=== PATIENT | male | born 1970 | race Caucasian/White ===

== ENCOUNTER 2019-10-27 11:17 | Emergency (ER) | payer BC ==
[2019-10-27] MEDS ORDERED: Sodium Chloride 0.9% 10 ML Syringe FLUSH PRN (11:24)
[2019-10-27 11:26] VITALS: BP 130/91; PULSE 46
--- NOTE | 2019-10-27 13:47 | CR ---
Chest: Portable view of the chest was obtained. Comparison: Prior chest x-ray of 10/16/15. Heart size and mediastinum are normal. Lungs are clear with no acute parenchymal change. Bony structures are grossly intact. Impression: 1. Nothing acute is seen on portable chest x-ray. Diagnostic code #1 This report was dictated in MDT
--- NOTE | 2019-10-27 14:10 | EDM.PDOC ---
ED HPI GENERAL MEDICAL PROBLEM - General Chief Complaint: Chest Pain Stated Complaint: [facility] Time Seen by Provider: 10/27/19 11:20 Source of Information: Reports: Patient, RN Notes Reviewed - History of Present Illness INITIAL COMMENTS - FREE TEXT/NARRATIVE: 49 yr old male awakened with onset of pressure discomfort upper abd and lower chest this past morning about 5 hrs ago. Went to the [place] [facility] and than transferred here for further evaluation. Still having mild pressure discomfort on arrival to ED. No known hx of Htn, diabetes or CAD. Does not smoke. Has been having a lot of stomach discomfort, what he has felt was heart burn for the past several weeks. No recent cough or difficulty breathing. Left Chest Pain Score (Numeric/FACES): 2 - Related Data Allergies Allergy/AdvReac Type Severity Reaction Status Date / Time No Known Allergies Allergy Verified 10/27/19 11:26 Home Meds: Home Meds Omeprazole 40 mg PO DAILY #30 capsule. 10/27/19 [Rx] Pregabalin [Lyrica] 150 mg PO BID 10/27/19 [History] Rosuvastatin [Crestor] 10 mg PO DAILY 10/27/19 [History] Past Medical History Cardiovascular History: Reports: High Cholesterol Musculoskeletal History: Reports: Fibromyalgia - Past Surgical History HEENT Surgical History: Reports: Other (See Below) Other HEENT Surgeries/Procedures: eat reconstruction sx GI Surgical History: Reports: Appendectomy Musculoskeletal Surgical History: Reports: Other (See Below) Other Musculoskeletal Surgeries/Procedures:: R open tibula, fibula sx. Social & Family History - Family History Cardiac: Reports: MD - Tobacco Use Smoking Status *Q: Former Smoker Used Tobacco, but Quit: Yes Month/Year Tobacco Last Used: 04/2019 - Caffeine Use Caffeine Use: Reports: None - Recreational Drug Use Recreational Drug Use: No ED ROS GENERAL - Review of Systems Review Of Systems: See Below Constitutional: Denies: Fever, Chills, Diaphoresis HEENT: Reports: No Symptoms Respiratory: Denies: Shortness of Breath, Cough Cardiovascular: Reports: Chest Pain GI/Abdominal: Reports: Abdominal Pain, Nausea (mild occasional). Denies: Hematochezia, Melena, Vomiting Musculoskeletal: Denies: Shoulder Pain, Arm Pain, Back Pain Skin: Reports: No Symptoms Neurological: Reports: No Symptoms ED EXAM, GENERAL - Physical Exam Exam: See Below General Appearance: Alert, No Apparent Distress (at time of initial exam) Eye Exam: Bilateral Eye: PERRL Respiratory/Chest: No Respiratory Distress, Lungs Clear, Normal Breath Sounds Cardiovascular: Bradycardia GI/Abdominal: Soft, Non-Tender. No: Guarding Back Exam: No: CVA Tenderness (L), CVA Tenderness (R) Extremities: Normal Inspection, Normal Range of Motion Neurological: Alert, Oriented, No Motor/Sensory Deficits Skin Exam: Warm, Dry, Normal Color Course - Vital Signs Last Recorded V/S: Last Vital Signs Temp 96.9 F 10/27/19 11:22 Pulse 46 L 10/27/19 11:22 Resp 18 10/27/19 11:22 BP 130/91 H 10/27/19 11:22 Pulse Ox 96 10/27/19 11:22 - Orders/Labs/Meds Orders: Active Orders 24 hr Category Date Time Status EKG 12 Lead [EKG Documentation Completion] [RC] STAT Care 10/27/19 11:25 Active Peripheral IV Care [RC] . DIRECTED Care 10/27/19 11:25 Active Peripheral IV Insertion Adult [OM.PC] Stat Oth 10/27/19 11:25 Ordered Labs: Laboratory Tests 10/27/19 10/27/19 10/27/19 Range/Units 11:25 11:25 13:55 WBC 7.27 (4.23-9.07) K/mm3 RBC 4.46 L (4.63-6.08) M/mm3 Hgb 13.5 L D (13.7-17.5) gm/dl Hct 39.9 L (40.1-51.0) % MCV 89.5 (79.0-92.2) fl MCH 30.3 (25.7-32.2) pg MCHC 33.8 (32.2-35.5) g/dl RDW Std Deviation 43.1 (35.1-43.9) fL Plt Count 186 (163-337) K/mm3 MPV 11.0 (9.4-12.3) fl Neut % (Auto) 52.8 (34.0-67.9) % Lymph % (Auto) 31.9 (21.8-53.1) % [place] % (Auto) 12.4 H (5.3-12.2) % Eos % (Auto) 2.2 (0.8-7.0) Baso % (Auto) 0.4 (0.1-1.2) % Neut # (Auto) 3.84 (1.78-5.38) K/mm3 Lymph # (Auto) 2.32 (1.32-3.57) K/mm3 [place] # (Auto) 0.90 H (0.30-0.82) K/mm3 Eos # (Auto) 0.16 (0.04-0.54) K/mm3 Baso # (Auto) 0.03 (0.01-0.08) K/mm3 Sodium 145 (136-145) mEq/L Potassium 4.4 (3.5-5.1) mEq/L Chloride 110 H (98-107) mEq/L Carbon Dioxide 25 (21-32) mEq/L Anion Gap 14.4 (5-15) BUN 17 (7-18) mg/dL Creatinine 1.1 (0.7-1.3) mg/dL Est Cr Clr Drug Dosing 88.18 mL/min Estimated GFR (MDRD) > 60 (>60) mL/min BUN/Creatinine Ratio 15.5 (14-18) Glucose 90 (74-106) mg/dL Calcium 9.2 (8.5-10.1) mg/dL Total Bilirubin 0.3 (0.2-1.0) mg/dL AST 18 (15-37) U/L ALT 27 (16-63) U/L Alkaline Phosphatase 64 (46-116) U/L Troponin I < 0.017 < 0.017 (0.00-0.056) ng/mL Total Protein 6.9 (6.4-8.2) g/dl Albumin 3.6 (3.4-5.0) g/dl Globulin 3.3 gm/dL Albumin/Globulin Ratio 1.1 (1-2) Meds: Medications Discontinued Medications Generic Name Dose Route Start Last Admin Trade Name Freq PRN Reason Stop Dose Admin Sodium Chloride 10 ml 10/27/19 11:24 10/27/19 11:27 Saline Flush FLUSH 10 ml ASDIRECTED PRN Administration Keep Vein Open - Re-Assessments/Exams Free Text/Narrative Re-Assessment/Exam: 10/27/19 17:35 CXR nl, Bradycardia but EKG otherwise nl. initial trop and repeat trop nl. As noted a lot of GERD sx the past several wks. Discharge instr. as documented. 10/27/19 17:36 Departure - Departure Time of Disposition: 15:02 Disposition: Home, Self-Care 01 Condition: Fair Clinical Impression: GERD (gastroesophageal reflux disease), Atypical chest pain Prescriptions: Omeprazole 40 mg PO DAILY #30 capsule. Referrals: Edith Austin, ELECTRONICS ENGINEERING MANAGER [Primary Care Provider] - Forms: ED Department Discharge Additional Instructions: prilosec 40 mg daily, pepcid or famotidine (available OTC) 20 mg twice daily. You may continue to use tums in addition until sx resolving. See Edith at the [facility] in 1 to 2 wks for recheck. Return to ED as needed if sx worsening in any way. Sepsis Event Note (ED) - Evaluation Sepsis Screening Result: No Definite Risk - Focused Exam Vital Signs: Vital Signs Temp Pulse Resp BP Pulse Ox 10/27/19 11:22 96.9 F 46 L 18 130/91 H 96 - My Orders Last 24 Hours: My Active Orders 10/27/19 11:25 EKG 12 Lead [EKG Documentation Completion] [RC] STAT Peripheral IV Care [RC] . DIRECTED Peripheral IV Insertion Adult [OM.PC] Stat - Assessment/Plan Last 24 Hours: My Active Orders 10/27/19 11:25 EKG 12 Lead [EKG Documentation Completion] [RC] STAT Peripheral IV Care [RC] . DIRECTED Peripheral IV Insertion Adult [OM.PC] Stat
== END 2019-10-27 15:16 | disposition home or self-care (01) ==
LOC: JD.ED 11:17
DX: K21.9 Gastro-esophageal reflux disease without esophagitis (principal); E78.00 Pure hypercholesterolemia, unspecified; Z87.891 Personal history of nicotine dependence; Z79.899 Other long term (current) drug therapy
CPT/HCPCS: 36415; 71045; 71045-26; 80053; 84484; 85025; 93005; 93010; 99283; 99285-25

== ENCOUNTER 2020-07-01 05:58 | Day surgery (SDC) | payer BC ==
[~2020-07-01 05:58] MED LIST: Lactated Ringers 1,000 ML IV SCH; Lidocaine 1%/Sod Bicarbonate in NS 8.4% 1 ML Syringe IDERM PRN; Sodium Chloride 0.9% 10 ML Syringe FLUSH PRN
--- NOTE | 2020-07-01 06:36 | PCM.PREANE ---
Preanesthetic Assessment - Procedure Proposed Procedure: right shoulder arthroscopy - Anesthesia/Transfusion/Family Hx Anesthesia History: Prior Anesthesia Without Reaction Family History of Anesthesia Reaction: No Transfusion History: No Prior Transfusion(s) - Review of Systems General: No Symptoms Pulmonary: No Symptoms Cardiovascular: No Symptoms Gastrointestinal: No Symptoms Neurological: No Symptoms Other: Reports: None - Physical Assessment NPO Status Date: 06/30/20 NPO Status Time: 00:00 Height: 1.83 m Weight: 89.3 kg ASA Class: 2 Mental Status: Alert & Oriented x3 Airway Class: Mallampati = 2 Dentition: Reports: Missing Tooth/Teeth, Caries Thyro-Mental Finger Breadths: 3 Mouth Opening Finger Breadths: 3 ROM/Head Extension: Full Lungs: Clear to Auscultation, Normal Respiratory Effort Cardiovascular: Regular Rate, Regular Rhythm - Allergies Allergies/Adverse Reactions: Allergies Allergy/AdvReac Type Severity Reaction Status Date / Time contact metal agent Allergy Cannot Verified 06/28/20 12:48 Remember tramadol Allergy Blurred Verified 06/28/20 12:48 Vision - Anesthesia Plan Pre-Op Medication Ordered: None - Acknowledgements Anesthesia Type Planned: General Anesthesia, Regional Block (interscalene block for post-op pain control) Pt an Appropriate Candidate for the Planned Anesthesia: Yes Alternatives and Risks of Anesthesia Discussed w Pt/Guardian: Yes Pt/Guardian Understands and Agrees with Anesthesia Plan: Yes PreAnesthesia Questionnaire HEENT History: Reports: Other (See Below) Other HEENT History: right otitis media, impacted cerumen, right ear surgery, wears glasses, has dentures Cardiovascular History: Reports: High Cholesterol Respiratory History: Reports: None Gastrointestinal History: Reports: GERD Genitourinary History: Reports: None CONSUMER STUDIES PROFESSOR History: Reports: None Musculoskeletal History: Reports: Fibromyalgia, Other (See Below) Other Musculoskeletal History: right shoulder pain, thumb fracture, back pain, finger fracture with repair, tibia/finger fracture Neurological History: Reports: Other (See Below) Other Neuro History: post concussion syndrome Psychiatric History: Reports: None Endocrine/Metabolic History: Reports: None Hematologic History: Reports: None Immunologic History: Reports: None Oncologic (Cancer) History: Reports: None Dermatologic History: Reports: None - Infectious Disease History Infectious Disease History: Reports: None - Past Surgical History Head Surgeries/Procedures: Reports: None HEENT Surgical History: Reports: Other (See Below) Other HEENT Surgeries/Procedures: eat reconstruction sx Cardiovascular Surgical History: Reports: None Respiratory Surgical History: Reports: None GI Surgical History: Reports: Appendectomy Female Surgical History: Reports: None Male Surgical History: Reports: None Endocrine Surgical History: Reports: None Neurological Surgical History: Reports: None Musculoskeletal Surgical History: Reports: Other (See Below) Other Musculoskeletal Surgeries/Procedures:: R open tibula, fibula sx. Oncologic Surgical History: Reports: None Dermatological Surgical History: Reports: None - SUBSTANCE USE Tobacco Use Status *Q: Former Tobacco User Tobacco Use Within Last Twelve Months: No Second Hand Smoke Exposure: Yes Recreational Drug Use History: No - HOME MEDS Home Medications: Home Meds Omeprazole 40 mg PO DAILY #30 capsule. 10/27/19 [Rx] Rosuvastatin [Crestor] 10 mg PO DAILY 10/27/19 [History] Multivitamin 1 tab PO DAILY 06/28/20 [History] Ubidecarenone [Coq-10] 200 mg PO DAILY 06/28/20 [History] Acetaminophen/HYDROcodone [[place] 325-5 MG] 1 - 2 tab PO Q6H PRN #30 tablet 07/01/20 [Rx] Cyclobenzaprine [Flexeril] 10 mg PO BID PRN #20 tab 07/01/20 [Rx] - CURRENT (IN HOUSE) MEDS Current Meds: Current Medications Lactated Ringer's (Ringers, Lactated) 1,000 mls @ 125 mls/hr IV ASDIRECTED SAAD Stop: 07/01/20 18:00 Lidocaine/Sodium Bicarbonate (Lidocaine 1%/Sod Bicarbonate In Ns 8.4% 1 Ml Syringe) 0.25 ml IDERM ONETIME PRN PRN Reason: Prior to IV Start Stop: 07/01/20 18:00 Sodium Chloride (Sodium Chloride 0.9% 10 Ml Syringe) 10 ml FLUSH ASDIRECTED PRN PRN Reason: Keep Vein Open Stop: 07/01/20 18:00
[2020-07-01] MEDS ORDERED: Ropivacaine 0.5% 5 MG/ML 30 ML SDV ONE (06:37)
[2020-07-01] MEDS ORDERED: EPINEPHrine 1 MG/ML 30 ML MDV IRR SCH (07:15)
--- NOTE | 2020-07-01 09:05 | PCM.POSTAN ---
POST ANESTHESIA ASSESSMENT - MENTAL STATUS Mental Status: Alert, Oriented - VITAL SIGNS Vital Signs: Last Vital Signs Temp 36.0 C L 07/01/20 06:15 Pulse 60 07/01/20 06:59 Resp 10 L 07/01/20 06:59 BP 143/97 H 07/01/20 06:59 Pulse Ox 96 07/01/20 06:59 - RESPIRATORY Respiratory Status: Respiratory Rate WNL, Airway Patent, O2 Saturation Stable - CARDIOVASCULAR CV Status: Pulse Rate WNL, Blood Pressure Stable - GASTROINTESTINAL GI Status: No Symptoms - PAIN Pain Score: 0 - POST OP HYDRATION Hydration Status: Adequate & Stable - OBSERVATIONS Free Text/Narrative:: no anesthesia complications noted
--- NOTE | 2020-07-01 09:08 | PCM.SN.2 ---
- Free Text/Narrative Note: Date: 07/01/2020 Time Out:0650 Start: 649 Stop: 658 Surgical Procedure: Right shoulder video arthroscopy with RCR Diagnosis Right Shoulder Pain Current Procedure: Right interscalene block under US guidance for postoperative pain control requested by Dr. Correia. Patient chart reviewed, risk/benefits discussed with patient, consent obtained. Patient positioned supine, monitors/alarms on, oxygen placed via nasal cannula at 2 LPM. IV sedation administered: Versed 2mg IV, Fentanyl 100mcg IV given in preop prior to block placement. Right shoulder prepped with two chloropreps. Sterile drapes placed with aseptic technique noted. Under US guidance, right subclavian artery visualized along with the right brachial plexus. Plexus followed up to C6 cricoid level, and area localized with 2mls of 1% lidocaine. 22gauge 2 inch stimiplex needle advanced under US with 0.8mV with stimulation of biceps noted. Good stimulation noted with decreased voltage and absent at 0.3mVs. 1ml of Normal Saline injected with loss of stimulation noted to confirm needle not placed intraneurally. Incremental dosing of 5mls with negative aspiration noted prior to each injection of 0.5% ropivacaine with 1:200,000 epinephrine. Total volume=30mls. Please refer to nurses noted for vital signs. Marek Agustin CRNA
[2020-07-01] MEDS: fentaNYL 100 MCG/2 ML SDV IVPUSH PRN ×2 (09:30→09:54)
[2020-07-01] MEDS ORDERED: Cyclobenzaprine 10 MG Tab PO ONE (09:34)
[2020-07-01] MEDS ORDERED: Acetaminophen/HYDROcodone 325-5 MG Tab PO ONE (09:35)
[2020-07-01 10:06] VITALS: PULSE 63
--- NOTE | 2020-07-01 10:21 | PCM48HPAN ---
Post Anesthesia Note - EVALUATION WITHIN 48HRS OF ANESTHETIC Vital Signs in Normal Range: Yes Patient Participated in Evaluation: Yes Respiratory Function Stable: Yes Airway Patent: Yes Cardiovascular Function Stable: Yes Hydration Status Stable: Yes Pain Control Satisfactory: Yes Nausea and Vomiting Control Satisfactory: Yes Mental Status Recovered: Yes Vital Signs: Last Vital Signs Temp 36.2 C 07/01/20 10:07 Pulse 63 07/01/20 10:07 Resp 16 07/01/20 10:07 BP 124/82 07/01/20 10:07 Pulse Ox 97 07/01/20 10:07 - COMMENTS/OBSERVATIONS Free Text/Narrative:: no anesthesia complications noted
[2020-07-01 12:43] VITALS: BP 125/83
--- NOTE | 2020-07-01 14:02 | PCM.OPNOTE ---
- General Post-Op/Procedure Note Date of Surgery/Procedure: 07/01/20 Operative Procedure(s): right shoulder video arthroscopy with medium rotator cuff repair, subacromial decompression, extensive debridement, biceps tenotomy, anterior SLAP repair Pre Op Diagnosis: right shoulder rotator cuff tear with impingement Post-Op Diagnosis: same with biceps tendinitis and SLAP tear Anesthesia Technique: General ET Tube, Regional Block Primary Surgeon: George Correia Anesthesia Provider: Marek Agustin Divinity Professor: Clarisa Louis EBL in mLs: 5 Complications: None Condition: Good Free Text/Narrative:: Intake & Output 06/30/20 07/01/20 07/01/20 22:59 06:59 14:59 Intake Total 1700 Balance 1700
--- NOTE | 2020-07-08 07:55 | OR ---
DATE OF OPERATION: 07/01/2020 SURGEON: George Correia MD OPERATION PERFORMED: Right shoulder video arthroscopy with medium rotator cuff repair, subacromial decompression, extensive debridement, biceps tenotomy, and anterior SLAP repair. PREOPERATIVE DIAGNOSIS: Right shoulder rotator cuff tear with impingement. POSTOPERATIVE DIAGNOSIS: Right shoulder rotator cuff tear with impingement with biceps tendinitis and SLAP tear. ANESTHESIA: General endotracheal intubation with regional interscalene block. ANESTHESIA PROVIDER: Rolf Benoit. PREPARATION CENTER COORDINATOR: Clarisa Louis PA-C ESTIMATED BLOOD LOSS: Less than 5 mL. COMPLICATIONS: None. CONDITION: Stable. DESCRIPTION OF PROCEDURE: The patient was identified in the preoperative holding area. Proper site was marked and identified by surgeon. The patient was taken back to the operative theater where after adequate anesthesia, the patient was placed in the lazy left lateral decubitus position. A wedge was placed posteriorly. The patient was secured to the table. Right upper extremity was then sterilely prepped and draped in the usual sterile fashion. OR time-out was performed. The patient received 2 g of IV Ancef. 12 pounds of traction was then applied to the right upper extremity. Standard posterior incision was made. Scope trocar was introduced to the glenohumeral joint. With the use of a spinal needle, anterior portal was created from an outside-in technique. At this time, the patient was noted to have significant high-grade fraying of the attachment of the biceps tendon as well as a significant SLAP tear of the anterior portion of the superior labrum. The patient was noted to have no significant chondromalacia. The subscapularis tendon was intact. Undersurface of the rotator cuff was intact, just a small amount of fraying on the undersurface of the supraspinatus. At this time, a biceps tenotomy was performed. The patient was noted to have significant instability of the anterior portion of the superior labrum. There was also noted to be significant synovitis as well as bursitis. This was then resected out. An extensive debridement was undertaken of the superior labrum back to a stable rim. At this time, an Arthrex 2.9 mm PushLock anchor was placed anterior and the superior labrum and the anterior portion, and was found to have adequate repair of this at this time. Attention was turned to the subacromial space. The patient was noted to have significant bursitis as well as fraying of the CA ligament indicative of subacromial impingement. At this time, resection of the bursitis was done for an extensive debridement and a subacromial decompression using a 4.0 full-radius carmel was done back to a smooth border with the posterior rim of the acromion. At this time, the patient was noted to have high-grade partial-thickness tearing of a small portion of the anterior portion of the supraspinatus. This was debrided. 4.0 carmel was then used to create a good bony bleeding bed. An Arthrex all-suture anchor was placed medially. Six limbs of suture were then passed through the tear. All of these limbs were then brought out laterally and a Karen lateral row repair was placed laterally. All 6 limbs were brought through, tension was applied, and was noted to have adequate compression and catholic of the footprint of the supraspinatus tear. Excess saline was drained from the shoulder. 0.25% Marcaine was injected around the incisional sites. The patient had 3-0 nylon used for closure of the portals. The patient was placed in a sterile soft dressing and a pillow sling and was sent to the PACU in stable condition. MANOHAR /[id number]
== END 2020-07-01 11:30 | disposition home or self-care (01) ==
LOC: JD.SDS 05:58
PROVIDERS: ATTEND Orthopaedic Surgery
DX: M75.111 Incomplete rotator cuff tear or rupture of right shoulder, not specified as traumatic (principal); M25.811 Other specified joint disorders, right shoulder; S43.431A Superior glenoid labrum lesion of right shoulder, initial encounter; M75.51 Bursitis of right shoulder; M65.811 Other synovitis and tenosynovitis, right shoulder; E78.00 Pure hypercholesterolemia, unspecified; G89.18 Other acute postprocedural pain; Z79.899 Other long term (current) drug therapy; Z88.8 Allergy status to other drugs, medicaments and biological substances
CPT/HCPCS: 29807; 29826; 29827; A9270; C1713; J2795; J3010; J7120; 01630; 64415; J0690; J2250; J2405; J2704